=== PATIENT | male | born 1960 | race Caucasian/White ===

== ENCOUNTER 2016-08-11 02:57 | Observation (INO) | payer OTHER ==
[~2016-08-11] VITALS: Ht 180.3 cm; Wt 73.9 kg
--- NOTE | ~2016-08-11 | HEMODYNAMI ---
PATIENT:ALLAN SURESH MEDICAL RECORD: [id number] : 64 [facility] ADMISSION DATE: 08/11/16 Generatedon:08/11/201616:27 Patient name: ALLAN SURESH Patient #: [id number] SSN: : Date of study: 08/11/2016 Page: Of Hemodynamic Procedure Report Patient Data Patient Demographics Procedure consent was obtained First Name: ALLAN Gender: Male Last Name: KERWIN : 1960 [facility] Initial: DANYA Age: 56 year(s) Patient #: [id number] Race: Additional ID: [id number] Contact details [address]: [address] [place] [address] State: [place] City: [place] Zip code: [address] Past Medical History History of disease Date Diagnosis Comments CAD Allergies Allergen Reaction Date Comments Reported Penicillins 05/06/2014 Admission Admission Data Admission Date: 08/11/2016 Admission Time: 5:09 Room #: D2109 Procedure Procedure Types Cath Procedure Diagnostic Procedure [facility] w/Coronaries PCI Procedure Coronary Stent Initial Miscellaneous Procedures Moderate Sedation up to 15 minutes Procedure Description Procedure Date Procedure Date: 08/11/2016 Procedure Start Time: 16:07 Procedure End Time: 16:25 Procedure Staff Name Function Pedro Johnson MD Performing Physician Montse Darden RN Nurse Jarred Lopez RT Monitor April Mulligan RN Pulverizer Operator David Dent RT Scrub Procedure Data Cath Procedure Fluoroscopy Diagnostic fluoroscopy Total fluoroscopy Time: 3 time: 3 min min Diagnostic fluoroscopy Total fluoroscopy dose: 873 dose: 873 mGy mGy Contrast Material Contrast Material Type Amount (ml) Isovue 300 96 Entry Location Entry Primary Successful Side Size Upsize Upsize Entry Closure Succes sful Closure Location (Fr) 1 (Fr) 2 (Fr) Remarks Device Remarks Femoral Right 5 Fr 6 Fr Exoseal artery Short Estimated blood loss: 10 ml Diagnostic catheters Device Type Used For End Catheter Placement Cordis 5Fr Pigtail Procedure Catheter (MP) Cordis 5Fr JL 4.0 Procedure Catheter (MP) Cordis 5Fr 3DRC Catheter Procedure (MP) Procedure Complications No complications Procedure Medications Medication Administration Route Dosage Oxygen NC 2 l/min Heparin Flush Bag added to field 2 bags (1000units/500ml NS) Lidocaine 2% added to field 20 Plavix P.O. 75 mg Versed I.V. 1 mg Fentanyl I.V. 50 mcg Versed I.V. 1 mg Fentanyl I.V. 50 mcg Heparin Bolus I.V. 4000 units Fentanyl I.V. 50 mcg Versed I.V. 1 mg Fentanyl I.V. 50 mcg Hemodynamics Rest Heart Rate: 76 (bpm) Snapshots Pre Cath Intra NCS Post Cath Vital Signs Time Heart Resp SPO2 etCO2 CK0ewlk NIBP (mmHg) Rhythm Pain Sedatio n Rate (ipm) (%) (mmHg) (mmHg) Status Level (bpm) 15:48:34 81 19 98 0 0 145/100(116) NSR 0 (11) 10(A) , No pain 15:52:53 81 14 94 0 0 124/86(109) NSR 0 (11) 10(A) , No pain 15:57:02 82 16 94 0 0 137/84(115) NSR 0 (11) 10(A) , No pain 16:01:18 83 16 95 0 0 131/80(105) NSR 0 (11) 10(A) , No pain 16:06:17 86 15 95 0 0 Measuring NSR 0 (11) 10(A) , No pain 16:06:20 88 15 95 0 0 144/107(136) NSR 0 (11) 10(A) , No pain 16:11:19 91 16 96 0 0 Measuring NSR 0 (11) 9(A) , No pain 16:12:38 95 15 96 0 0 150/98(110) NSR 0 (11) 9(A) , No pain 16:17:37 96 16 96 0 0 Measuring NSR 0 (11) 9(A) , No pain 16:17:48 97 16 96 0 0 131/113(124) NSR 0 (11) 9(A) , No pain 16:22:47 95 17 95 0 0 Measuring NSR 0 (11) 9(A) , No pain 16:23:57 96 17 95 0 0 124/91(109) NSR 0 (11) 9(A) , No pain Medications Time Medication Route Dose Verified Delivered Reason Notes Effectiveness by by 15:43:14 Plavix P.O. 75 mg Pedro Montse for Alex Darden RN antiplatelet therapy 15:47:54 Oxygen NC 2 Pedro Montse Per physician l/min Alex Darden RN 15:48:05 Heparin Flush added 2 Pedro Pedro used for Bag to bags Alex Johnson MD procedure (1000units/500ml field NS) 15:48:13 Lidocaine 2% added 20ml Pedro Pedro used for to vial Alex Johnson MD procedure field 16:04:30 Versed I.V. 1 mg Pedro Montse for sedation Alex Darden RN 16:04:31 Fentanyl I.V. 50 Pedro Montse for sedation mcg Alex Darden RN 16:06:35 Versed I.V. 1 mg Pedro Montse for sedation Alex Darden RN 16:06:39 Fentanyl I.V. 50 Pedro Montse for sedation mcg Alex Darden RN 16:08:15 Fentanyl I.V. 50 Pedro Montse for sedation mcg Alex Darden RN 16:08:26 Versed I.V. 1 mg Pedro Montse for sedation Alex Darden RN 16:10:46 Fentanyl I.V. 50 Pedro Montse for sedation mcg Alex Darden RN 16:15:04 Heparin Bolus I.V. 4000 Pedro Montse for dose units Alex Darden RN anticoagulation verified with dr johnson Procedure Log Time Note 15:20:43 April Mulligan RN sent for patient. Start room use. 15:41:56 Time tracking: Regular hours 15:42:05 Plan of Care:Hemodynamics will remain stable., Cardiac rhythm will remain stable., Comfort level will be maintained., Respiratory function will remain adequate., Patient/ family verbilizes understanding of procedure., Procedure tolerated without complication., Recovers from procedure without complications.. 15:42:16 Patient received from PCU to CCL 1 Alert and oriented. Tansferred to table in Supine position. 15:42:17 Warm blankets applied, and ivon hugger turned on for patient comfort. 15:42:18 Correct patient and procedure confirmed by team. 15:42:19 Signed procedure consent form obtained from patient. 15:42:19 ECG and BP/O2 sat monitors applied to patient. 15:43:14 Plavix 75 mg P.O. was administered by Montse Darden RN; for antiplatelet therapy; 15:47:33 Vital chart was started 15:47:54 Oxygen 2 l/min NC was administered by Montse Darden RN; Per physician; 15:48:05 Heparin Flush Bag (1000units/500ml NS) 2 bags added to field was administered by Pedro Johnson MD; used for procedure; 15:48:13 Lidocaine 2% 20ml vial added to field was administered by Pedro Johnson MD; used for procedure; 15:49:05 Baseline sample Acquired. 15:49:14 Rhythm: sinus rhythm 15:49:15 Full Disclosure recording started 15:49:21 H&P Date Dictated: 08/11/2016 Within 30 days and on chart.. 15:49:22 Pre-procedure instructions explained to patient. 15:49:22 Pre-op teaching completed and patient verbalized understanding. 15:49:23 Family in waiting room. 15:49:25 Patient NPO since Midnight. 15:49:28 Is the patient allergic to Iodine/contrast media? No. 15:49:33 Is patient on blood thinner?Yes 15:49:37 ACC The patient was administered the following blood thiners within the last 24 hours: ACCPlavix 15:49:40 Patient diabetic? Yes. 15:50:59 If diabetic: On Metformin? No 15:51:18 Previous problem with sedation/anesthesia? No ? 15:51:20 Snore? Yes 15:51:21 Sleep apnea? No 15:51:22 Deviated septum? No 15:51:23 Opens mouth fully? Yes 15:51:24 Sticks out tongue? Yes 15:51:26 Airway obstruction? No ? 15:51:28 Dentures? No ? 15:51:43 Pre procedure: right dorsailis pedis pulse 1+ Palpable, but thready & weak; easily obliterated 15:51:46 Patient pain scale 0/10 ?. 15:51:53 IV patent on arrival in left forearm with 0.9% NaCl at [facility]. 15:51:56 Lab results completed and on chart. 15:52:02 Right groin area was prepped with chlora-prep and draped in sterile fashion 15:52:04 Alarms reviewed by R. N. 15:52:05 Sharps counted by scrub and verified by R.N. 15:52:59 Use device set Femoral Dx 15:53:00 Tegaderm 4 x 4 opened to sterile field. 15:53:01 Acist Hand Control opened to sterile field. 15:53:02 Acist Manifold opened to sterile field. 15:53:04 Acist Syringe opened to sterile field. 15:53:04 Bag Decanter opened to sterile field. 15:53:05 Medline Cath Pack opened to sterile field. 15:53:05 Terumo 5Fr Cooper Sheath opened to sterile field. 15:53:06 St Shabbir 260cm J .035 wire opened to sterile field. 15:53:07 Diagnostic Infinity 5Fr Multipack catheter opened to sterile field. 15:55:36 Physician paged 16:03:30 Zero performed for pressure channel P1 16:04:22 --------ALL STOP TIME OUT------ 16:04:24 Final Timeout: patient, procedure, and site verified with staff and physician. All members of the team are in agreement. 16:04:27 Right groin site verified by team. 16:04:29 Physical assessment completed. ASA score P 2 - A patient with mild systemic disease as per Pedro Johnson MD. 16:04:30 Versed 1 mg I.V. was administered by Montse Darden RN; for sedation; 16:04:31 Fentanyl 50 mcg I.V. was administered by Montse Darden RN; for sedation; 16:04:32 Sedation plan: IV Moderate Sedation Versed, Fentanyl 16:06:35 Versed 1 mg I.V. was administered by Montse Darden RN; for sedation; 16:06:39 Fentanyl 50 mcg I.V. was administered by Montse Darden RN; for sedation; 16:07:32 Procedure started. 16:07:36 Local anesthetic to right femoral artery with Lidocaine 2% by Pedro Johnson MD.INITIAL ACCESS ONLY 16:08:15 Fentanyl 50 mcg I.V. was administered by Montse Darden RN; for sedation; 16:08:26 Versed 1 mg I.V. was administered by Montse Darden RN; for sedation; 16:10:33 A 5 Fr sheath was inserted into the Right Femoral artery 16:10:46 Fentanyl 50 mcg I.V. was administered by Montse Darden RN; for sedation; 16:10:50 A Cordis 5Fr Pigtail Catheter (MP) was advanced over the wire and used for Procedure. 16:10:56 LV angiography performed. 16:10:57 LV gram done using BERNABE 16:11:01 EF : 55 % 16:11:06 Injector settings: Ml/sec: 10, Volume: 20, 16:11:12 Catheter removed. 16:11:18 A Cordis 5Fr JL 4.0 Catheter (MP) was advanced over the wire and used for Procedure. 16:11:37 LCA angiography performed. 16:12:22 Catheter removed. 16:12:28 A Cordis 5Fr 3DRC Catheter (MP) was advanced over the wire and used for Procedure. 16:13:36 RCA angiography performed. 16:14:07 Terumo 6Fr Cooper Sheath opened to sterile field. 16:14:08 Em Whisper J 300cm 0.014 guide wire opened to sterile field. 16:14:08 WibiDataixCompak Inflation Kit opened to sterile field. 16:14:08 apomiotronic Launcher 6Fr 3DRC guide catheter opened to sterile field. 16:14:13 Catheter removed. 16:14:32 Sheath upsized to a 6 Fr Short. 16:14:47 6 Fr 3DRC guide catheter was inserted over the wire 16:15:04 Heparin Bolus 4000 units I.V. was administered by Montse Darden RN; for anticoagulation; dose verified with dr johnson 16:15:05 ACC PCI Site: mRCA has 80% stenosis. 16:15:10 Whisper wire advanced. 16:16:29 Wire advanced across lesion. 16:17:26 Inflation Number: 1 A Medtronic Resolute 3.5 X 12 stent was prepped and advanced across the Prox RCA. The stent was deployed at 21 LOYD for 0:10 (min:sec). 16:17:34 Inflation number: 2 The stent balloon was then re-inflated across the Prox RCA to 21 LOYD for 0:10 (min:sec). 16:18:38 Multiple inflations made at 21 Atms. 16:19:09 ACC Post-intervention NISHANT Flow is 3. 16:19:11 Stent catheter was removed intact over wire. 16:19:12 Wire removed. 16:19:12 Guide catheter removed. 16:19:21 Cordis 6Fr Exoseal opened to sterile field. 16:19:35 Sheath removed intact; hemostasis achieved with Exoseal to the Right Femoral artery. 16:19:38 Procedure ended.(Physican Out) 16:19:49 Fluoroscopy time 03.00 minutes. 16:19:53 Flurop Dose total: 873 16:19:53 Fluoroscopy dose: 873 mGy 16:19:58 Contrast amount:Isovue 300 96ml. 16:20:01 Sharps counted by scrub and verified by R.N. 16:20:03 Insertion/operative site no bleeding no hematoma. 16:20:06 Post-op/insertion site Right Femoral artery dressed using a 4 x 4 and Tegaderm. 16:20:08 Post Procedure Pulses reassessed and unchanged 16:20:12 Post-procedure physical assessment completed. ASA score P 2 - A patient with mild systemic disease as per Pedro Johnson MD. 16:20:14 Post procedure rhythm: unchanged. 16:20:16 Estimated blood loss: 10 ml 16:20:18 Post procedure instruction explained to patient.Patient verbalizes understanding. 16:20:19 Patient needs reinforcement of post procedure teaching. 16:20:31 Procedure type changed to Cath procedure, Diagnostic procedure, LHC, LHC w/Coronaries, PCI procedure, Coronary Stent Initial, Miscellaneous Procedures, Moderate Sedation up to 15 minutes 16::33 Procedure and supply charges have been captured, reviewed, submitted and are correct. 16:20:36 Procedure Complication : No complications 16:25:31 Vital chart was stopped 16:25:33 See physician's report for complete and final results. 16:25:36 Report given to PCU. 16:25:40 Patient transfered to PCU with Bed. 16::43 Procedure ended. 16::43 Full Disclosure recording stopped 16:25:53 End room use (Document Last) Intervention Summary Intervention Notes Time ActionType Lesion and Equipment Action# Pressure Duration Attributes Used 16:17:26 Place stent Prox RCA Medtronic 1 21 00:10 Resolute 3.5 X 12 stent 16:17:34 Reinflate Prox RCA Medtronic 2 21 00:10 stent Resolute balloon 3.5 X 12 stent Device Usage Item Name Manufacture Quantity Catalog Hospital Part Current Minimal Lot# / Number Charge Number Stock Stock Serial# Code Liz Reddy 3M 1 [id number] 203266 270826 5 x 4 Acist Hand Acist 1 00397 522722 748016 337967 5 Control Medical Systems Connect HQ Acist Acist 1 16571 051899 860057 738405 5 Manifold Medical Systems Connect HQ Acist Acist 1 78915 739236 372258 402814 20 Syringe Cloakware Systems Connect HQ Bag Microtek 1 2002S 825987 69311 851945 5 [employer] Medline Cardinal 1 [id number] 286478 96122 303039 5 Cath Pack Health Terumo 5Fr Terumo 1 [id number] 264672 329670 324[address] St Shabbir 1 820001 796175 112376 461498 30 260cm J .035 wire Diagnostic Cardinal 1 [id number] 337740 57483 724201 30 Infinity Health 5Fr Multipack catheter Cordis 5Fr Cardinal 1 318898 5 Pigtail Health Catheter (MP) Cordis 5Fr Cardinal 1 200548 5 JL 4.0 Health Catheter (MP) Cordis 5Fr Cardinal 1 456646 5 3DRC Health Catheter (MP) Terumo 6Fr Terumo 1 [id number] 104386 309046 493740 40 Cooper Sheath Em Em 1 [id number] 396647 249566 077388 5 Whisper J Vascular 300cm 0.014 guide wire Merit Merit 1 [id number] 155958 431642 916350 15 [facility] Medical Inflation Kit Medtronic Medtronic 1 [id number] 484309 314630 594076 1 Launcher 6Fr 3DRC guide catheter Medtronic Medtronic 1 [id number] 259603 330342 5 [id number] Resolute 3.5 X 12 stent Cordis 6Fr Cardinal 1 EX600 127297 712685 783474 10 [facility] NeoStem Signature Audit [place] Stage Time Signature Unsigned Intra-Procedure 08/11/2016 Jarred Lopez 4:27:32 PM RT(R) Signatures Monitor : Jarred Lopez RT Signature : Date : Time : [address] [place] [address]
[~2016-08-11 02:57] MED LIST: ACETAMINOPHEN325 MG PO; ALLEGRA-D1 TAB.SR . PO; APIDRA100 U/M1 SQ; BAYER CHEWABLE81 MG PO; BUTALB-APAP-CA1 EACH PO; CARAFATE1 G PO; ELAVIL25 MG PO; FARXIGA10 MG PO; FLAGYL500 MG PO; IMDUR30 MG PO; KOMBIGLYZE XR1 EACH PO; LANTUS INSULIN10 ML SC; LANTUS SOL100 UNIT/1 SQ; LEVAQUIN500 MG PO; LEVSIN/ANASP0.125 MG SL; LIPITOR40 MG PO; LISINOPRIL10 MG PO; MULTI-DAY VITAM1 TAB PO; NITROSTAT0.4 MG SL; NOVOLOG100 U/M1 SC; PHENERGAN25 M1 PO; PLAVIX75 MG PO; PRAVACHOL40 MG PO; PRILOSEC20 MG PO; PRINIVIL20 MG PO; PROCTOFOAM-HC F10 G1 RC; PROTONIX40 MG PO; RANEXA500 MG PO; ROBAXIN-750750 MG PO; SYNTHROID50 MCG PO; VITAMIN C250 MG PO; ZESTRIL10 MG PO
[2016-08-11 03:27] LABS: BASOPHILS 0.3 % (0-2); EOSINOPHILS 4.1 % (0-7); HEMATOCRIT 46.6 % (42.0-54.0); HEMOGLOBIN 16.3 g/dL (13.5-17.5); IMMATURE GRANULOCYTES 0.3 % (0-5); MCH 30.6 pg (26.0-34.0); MCV 87.4 fL (80.0-100.0); MEAN PLATELET VOLUME 9.8 fL (7.4-10.4); MONOCYTES 9.5 % (2-11); NEUTROPHILS 46.8 % (40-80); PLATELET COUNT 192 10x3/uL (130-400); RBC 5.33 10x6/uL (4.20-6.10); RDW 13.2 % (11.5-14.5); WBC 6.3 10x3/uL (4.8-10.8)
[2016-08-11 03:50] LABS: ALBUMIN 3.8 g/dL (3.4-5.0); ALKALINE PHOSPHATASE 68 U/L (46-116); ALT (SGPT) 45 U/L (10-68); CALC OSMOLALITY 280 mosm/kg (275-300); CALCIUM 9.2 mg/dL (8.5-10.1); CARBON DIOXIDE 23.8 mmol/L (21.0-32.0); CHLORIDE - SERUM 100 mmol/L (98-107); CREATININE - SERUM 1.1 mg/dL (0.6-1.3); POTASSIUM - SERUM 3.6 mmol/L (3.5-5.1); PROTEIN - SERUM 7.5 g/dL (6.4-8.2); SODIUM 135 mmol/L (136-145); UREA NITROGEN 18 mg/dL (7-18); eGFR NON AFRICAN AMERICAN 74 mL/min (90-120)
[2016-08-11 03:51] LABS: GLUCOSE 268 mg/dL (74-106)
[2016-08-11 04:01] LABS: CREATINE KINASE 119 UL (21-232); TROPONIN-I < 0.017 ng/mL (0.000-0.060)
--- NOTE | 2016-08-11 05:15 | NUR ---
PT CAME TO M2 FLOOR IN WHEELCHAIR WITH ER NURSE AND . PT HUMBERTO AND EMMY.
[2016-08-11 06:15] LABS: CREATINE KINASE 109 UL (21-232); TROPONIN-I < 0.017 ng/mL (0.000-0.060)
[2016-08-11 08:00] VITALS: BP 123/75
--- NOTE | 2016-08-11 08:27 | NUR ---
ALERT AND ORIENTED X4. RESTING IN BED. AT BEDSIDE. COMPLAINS OF CHEST PAIN AND SOB. O2 @ 2L NC. CONSENTS FOR CRUSHER SCREEN REPAIRER SIGNED ON CHART. COURTNEY CARDIAC HOME DECORATOR IN ROOM. CONTINUE PLAN OF CARE AND SAFETY PRECAUTIONS. BED LOCKED AND LOW. CALL LIGHT IN REACH. TWO SIDERAILS UP.
[2016-08-11 08:43] LABS: BASOPHILS 0.4 % (0-2); EOSINOPHILS 4.8 % (0-7); HEMATOCRIT 45.3 % (42.0-54.0); HEMOGLOBIN 15.6 g/dL (13.5-17.5); IMMATURE GRANULOCYTES 0.4 % (0-5); LYMPHOCYTES 35.4 % (15-50); MCH 30.4 pg (26.0-34.0); MCHC 34.4 g/dL (31.0-37.0); MCV 88.3 fL (80.0-100.0); MEAN PLATELET VOLUME 10.3 fL (7.4-10.4); PLATELET COUNT 188 10x3/uL (130-400); RBC 5.13 10x6/uL (4.20-6.10); RDW 13.2 % (11.5-14.5); WBC 5.4 10x3/uL (4.8-10.8)
[2016-08-11 08:45] LABS: CARBON DIOXIDE 18.8 mmol/L (21.0-32.0); CREATININE - SERUM 1.2 mg/dL (0.6-1.3); POTASSIUM - SERUM 3.8 mmol/L (3.5-5.1)
[2016-08-11 11:13] VITALS: BP 123/75; Ht 180.3 cm; Wt 73.9 kg
[2016-08-11 12:30] LABS: CREATINE KINASE 84 UL (21-232); TROPONIN-I < 0.017 ng/mL (0.000-0.060)
[2016-08-11 14:02] VITALS: BP 114/71
[2016-08-11 16:00] VITALS: BP 147/94
--- NOTE | 2016-08-11 16:40 | NUR ---
ARRIVE BACK TO ROOM FROM WINDOW DECORATOR VIA BED. ALERT AND ORIENTED X4. AT BEDSIDE. RT GROIN DRESSING CLEAN DRY INTACT. NO HEMATOMA. NO BLEEDING. SINUS RHTHYM 87bpm ON TELEMETRY. PULSE +2 BILATERALLY. BP-147/94, T-97.9, R-18, O2-96% 2L NC. INSTRUCT TO REMAIN FLAT FOR NEXT TWO HOURS. DISCHARGE ORDERED. OKAY TO STAY THROUGH NIGHT PER . PATIENT STATES, "I WANT TO STAY." CONTINUE PLAN OF CARE AND SAFETY PRECAUTIONS.
--- NOTE | 2016-08-11 19:50 | NUR ---
TEACHING PT LYING FLAT, AND DO NOT MOVE UNTIL 2029.
[2016-08-11 21:40] VITALS: BP 129/76
--- NOTE | 2016-08-12 01:07 | NUR ---
BOND TRADER AT BEDSIDE TO OBTAIN VITALS, CALL LIGHT IN REACH. WILL CONTINUE WITH PLAN OF CARE.
[2016-08-12 01:21] VITALS: BP 123/78
[2016-08-12 04:47] VITALS: BP 116/60
--- NOTE | 2016-08-12 08:09 | NUR ---
PT ASLEEP AT PRESENT. MONITOR SHOWS 77 SR.
[2016-08-12 08:40] VITALS: BP 115/75
--- NOTE | 2016-08-12 08:49 | OP ---
PATIENT NAME: ALLAN SURESH MEDICAL RECORD: [id number] :64 LOCATION:D.M2 D.2109 ADMISSION DATE:08/11/16 SURGEON: TEZ MEJIAS MD DATE OF OPERATION: 08/11/2016 PROCEDURES: 1. PTCA stent RCA. 2. Left heart catheterization. 3. Selective coronary angiography. 4. Left ventriculogram. INDICATION: Unstable angina. PROCEDURE IN DETAIL: After informed consent was obtained and after detailed explanation of risks, benefits as well as alternative therapies, the patient elected to proceed with angiogram and angioplasty. The right femoral area was prepped and draped in normal sterile fashion. The right femoral artery was cannulated via modified Seldinger technique with placement of 6-Ecuadorean sheath. All catheters exchanged through this sheath. FINDINGS: The left ventriculogram was performed in standard 30-degree BERNABE view, reveals good cardiac wall motion throughout all segments. Overall ejection fraction estimated at 55% to 60%. SELECTIVE CORONARY ANGIOGRAPHY: 1. Left main showed no significant angiographic disease. 2. Left anterior descending has mild irregularities, but no flow-limiting stenosis. 3. The left circumflex has nfxy-eg-qcnjzpig irregularities, but no flow-limiting stenosis. 4. The right coronary has multiple previously placed stents. There is 80% in-stent restenosis in the proximal and mid vessel. PTCA STENT OF THE RIGHT CORONARY ARTERY: The stent of proximal vessel was 3.5 x 12 mm Resolute taken to 21 atmospheres. The stent balloon was deployed at the area of in-stent restenosis in the mid vessel up to 21 atmospheres. Result was 0% residual throughout. OVERALL IMPRESSION: Successful percutaneous transluminal coronary angioplasty stent of the right coronary artery going from 80% initial stenosis to 0% residual. TRANSINT:[id number] Voice Confirmation ID: [id number] DOCUMENT ID: [id number] TEZ MEJIAS MD at 0849 CC: [id number] DICTATION DATE: 08/11/16 1623 NON DESTRUCTIVE TESTING SPECIALIST: 08/12/16 0148 ADM IN [place] [id number] [place] [address]
--- NOTE | 2016-08-12 09:54 | NUR ---
DISCHARGE INSTRUCTIONS GIVEN TO PT AND FAMILY. MONIOTR OFF AND IV DC WITH TIP INTACT. CALLED FOR WC.
--- NOTE | 2016-08-12 09:57 | NUR ---
D/C HOME. TO CAR VIA
--- NOTE | 2016-08-16 10:11 | DS ---
PATIENT:ALLAN COMBS :64 MEDICAL RECORD: [id number] DISCHARGE SUMMARY ADMISSION DATE: 08/11/16 DISCHARGE DATE: 08/12/16 DISCHARGE DIAGNOSES: 1. Unstable angina. 2. Coronary artery disease. 3. Percutaneous transluminal coronary angioplasty stent right coronary artery this admission. 4. Hypertension. 5. Hyperlipidemia. HOSPITAL COURSE: Mr. Combs presents with unstable anginal symptomatology, found to have single vessel disease of the RCA, underwent successful PTCA stent of the RCA, had an uneventful postop course. He was discharged home with no change in his medications as he is already on aspirin and Plavix. He will follow up with [facility] in 1 month. TRANSINT:[id number] Voice Confirmation ID: [id number] DOCUMENT ID: [id number] TEZ MEJIAS MD at 1011 CC: [id number] DICTATION DATE: 08/11/16 162 CLIENT TECHNICAL SUPPORT ASSOCIATE: 08/12/16 1038 DIS IN 08/12/16 [place] [id number] [place] [address]
== END 2016-08-12 09:58 | disposition home or self-care (01) ==
LOC: D.ER 02:57 → D.M2 05:09 → OBSVTIME 05:09 → D.M2 08-12 09:58
PROVIDERS: Family Medicine; ADMIT Internal Medicine Interventional Cardiology
DX: I25.110 Atherosclerotic heart disease of native coronary artery with unstable angina pectoris (principal); T82.855A Stenosis of coronary artery stent, initial encounter; Y83.9 Surgical procedure, unspecified as the cause of abnormal reaction of the patient, or of later complication, without mention of misadventure at the time of the procedure; E78.5 Hyperlipidemia, unspecified

== ENCOUNTER 2016-10-18 11:23 | Observation (INO) | payer OTHER ==
[~2016-10-18] VITALS: Ht 180.3 cm; Wt 103.5 kg
[2016-10-18 11:56] LABS: BASOPHILS 0.2 % (0-2); EOSINOPHILS 3.2 % (0-7); HEMATOCRIT 45.5 % (42.0-54.0); HEMOGLOBIN 15.9 g/dL (13.5-17.5); IMMATURE GRANULOCYTES 0.5 % (0-5); MCH 30.6 pg (26.0-34.0); MCHC 34.9 g/dL (31.0-37.0); MCV 87.7 fL (80.0-100.0); MEAN PLATELET VOLUME 10.4 fL (7.4-10.4); MONOCYTES 11.9 % (2-11); NEUTROPHILS 48.2 % (40-80); PLATELET COUNT 183 10x3/uL (130-400); RBC 5.19 10x6/uL (4.20-6.10); RDW 13.3 % (11.5-14.5); WBC 5.6 10x3/uL (4.8-10.8)
[2016-10-18 12:12] LABS: ALBUMIN 3.8 g/dL (3.4-5.0); ALKALINE PHOSPHATASE 79 U/L (46-116); ALT (SGPT) 50 U/L (10-68); BILIRUBIN - TOTAL 0.98 mg/dL (0.2-1.3); CALC OSMOLALITY 287 mosm/kg (275-300); CARBON DIOXIDE 27.3 mmol/L (21.0-32.0); CHLORIDE - SERUM 101 mmol/L (98-107); CREATININE - SERUM 1.2 mg/dL (0.6-1.3); POTASSIUM - SERUM 3.9 mmol/L (3.5-5.1); PROTEIN - SERUM 7.8 g/dL (6.4-8.2); SODIUM 138 mmol/L (136-145); UREA NITROGEN 14 mg/dL (7-18); eGFR NON AFRICAN AMERICAN 67 mL/min (90-120)
[2016-10-18 12:15] LABS: GLUCOSE 293 mg/dL (74-106)
[2016-10-18 12:16] LABS: CHOL - HDL RATIO 5.1 ratio (2.3-4.9); CHOLESTEROL, TOTAL 210 mg/dL (0-200); CKMB 1.1 U/L (0.0-3.6); CREATINE KINASE 128 UL (21-232); HDL CHOLESTEROL 41 mg/dL (32-96); LDL CHOLESTEROL 103 mg/dL (0-100); LDL-HDL RATIO 2.5 ratio (1.5-3.5); TRIGLYCERIDE 331 mg/dL (30-200)
[2016-10-18 12:31] LABS: TROPONIN-I < 0.017 ng/mL (0.000-0.060)
[2016-10-18 15:45] LABS: CKMB 0.8 U/L (0.0-3.6); CREATINE KINASE 93 UL (21-232)
[2016-10-18 15:46] LABS: TROPONIN-I < 0.017 ng/mL (0.000-0.060)
[2016-10-18 19:00] VITALS: BP 113/56
--- NOTE | 2016-10-18 19:53 | NUR ---
UP AMBULATING IN HALLS. WANTING ANXIETY MEDS BUT NOT TIME . EXPLAINED TO PT.
--- NOTE | 2016-10-18 19:56 | NUR ---
SLEEPING NO DISTRESS NOTED. MONITOR SB @ 51.
[2016-10-18 21:30] LABS: CKMB 0.9 U/L (0.0-3.6); CREATINE KINASE 80 UL (21-232)
[2016-10-18 21:35] LABS: TROPONIN-I < 0.017 ng/mL (0.000-0.060)
[2016-10-18 21:53] VITALS: Ht 180.3 cm; Wt 103.5 kg
[2016-10-19 04:00] VITALS: BP 117/67
[2016-10-19 05:54] LABS: BASOPHILS 0.2 % (0-2); HEMATOCRIT 43.2 % (42.0-54.0); HEMOGLOBIN 14.9 g/dL (13.5-17.5); IMMATURE GRANULOCYTES 0.4 % (0-5); LYMPHOCYTES 33.3 % (15-50); MCH 30.5 pg (26.0-34.0); MCHC 34.5 g/dL (31.0-37.0); MCV 88.5 fL (80.0-100.0); MEAN PLATELET VOLUME 10.3 fL (7.4-10.4); MONOCYTES 7.7 % (2-11); NEUTROPHILS 55.4 % (40-80); PLATELET COUNT 177 10x3/uL (130-400); RBC 4.88 10x6/uL (4.20-6.10); RDW 13.6 % (11.5-14.5); WBC 5.4 10x3/uL (4.8-10.8)
[2016-10-19 06:03] LABS: HEMOGLOBIN A1C 8.7 % (4.8-6.0)
[2016-10-19 06:22] LABS: ALBUMIN 3.4 g/dL (3.4-5.0); ALKALINE PHOSPHATASE 52 U/L (46-116); ALT (SGPT) 51 U/L (10-68); BILIRUBIN - TOTAL 1.37 mg/dL (0.2-1.3); CALC OSMOLALITY 282 mosm/kg (275-300); CALCIUM 8.3 mg/dL (8.5-10.1); CARBON DIOXIDE 27.4 mmol/L (21.0-32.0); CHLORIDE - SERUM 103 mmol/L (98-107); POTASSIUM - SERUM 3.8 mmol/L (3.5-5.1); PROTEIN - SERUM 6.8 g/dL (6.4-8.2); SODIUM 139 mmol/L (136-145); T4 THYROXIN - FREE 1.16 ng/dL (0.76-1.46); UREA NITROGEN 15 mg/dL (7-18); eGFR NON AFRICAN AMERICAN 83 mL/min (90-120)
[2016-10-19 06:23] LABS: GLUCOSE 163 mg/dL (74-106)
[2016-10-19 06:34] LABS: CKMB 0.4 U/L (0.0-3.6); CREATINE KINASE 64 UL (21-232)
[2016-10-19 06:35] LABS: TROPONIN-I < 0.017 ng/mL (0.000-0.060)
--- NOTE | 2016-10-19 07:00 | NUR ---
REPORT RECEIVED FROM OFF COMING NURSE. PT ALERT AND ORIENTED X4. C/O CHEST PAIN. PRN NITRO GIVEN WITH NO RESULTS OF RESOLVING CHEST PAIN. ECG PREFORMED SHOWING A NORMAL SINUS RYTHEM. AWARE OF CHEST PAIN. PRN NORCO GIVEN. PT HAS A L WRIST IV SL. DRESSING C/D/I. PT WAS WONDERING IF HE WAS GOING TO HAVE A STRESS TEST TODAY. MD NOTES VAGUE WHETHER HE IS TO HAVE ONE OR NOT. BREATHING NORMAL AND UNLABORED. 0 S/SX OF DISTRESS/DISCOMFORT NOTED. CALL LIGHT IN REACH. WILL CONT POC
[2016-10-19 08:18] VITALS: BP 107/61
--- NOTE | 2016-10-19 09:30 | NUR ---
C/O NAUSEA AFTER BREAKFAST. PRN ZOFRAN GIVEN WITH EFFECTIVNESS. WILL CONT POC
--- NOTE | 2016-10-19 12:00 | NUR ---
IN BED WATCHING TV. NO C/O PAIN AT THIS TIME. BREATHING NORMAL AND UNLABORED. CALL LIGHT IN REACH. WILL CONT POC.
[2016-10-19 12:23] VITALS: BP 104/62
[2016-10-19 17:06] VITALS: BP 118/75
--- NOTE | 2016-10-19 19:20 | NUR ---
REPORT GIVEN TO ON COMING NURSE
--- NOTE | 2016-10-19 19:48 | NUR ---
PT IN BED RESTING EVEN AND UNLABORED RESPIRATIONS NOTED WILL CONTINUE TO MONITOR
[2016-10-19 20:00] VITALS: BP 97/49
[2016-10-20 04:00] VITALS: BP 88/47
[2016-10-20 04:22] LABS: BASOPHILS 0.4 % (0-2); HEMATOCRIT 43.2 % (42.0-54.0); HEMOGLOBIN 14.7 g/dL (13.5-17.5); IMMATURE GRANULOCYTES 0.4 % (0-5); LYMPHOCYTES 40.6 % (15-50); MCH 30.3 pg (26.0-34.0); MCV 89.1 fL (80.0-100.0); MEAN PLATELET VOLUME 9.8 fL (7.4-10.4); MONOCYTES 6.7 % (2-11); NEUTROPHILS 48.9 % (40-80); PLATELET COUNT 172 10x3/uL (130-400); RBC 4.85 10x6/uL (4.20-6.10); RDW 13.2 % (11.5-14.5); WBC 5.1 10x3/uL (4.8-10.8)
--- NOTE | 2016-10-20 04:24 | NUR ---
RESTING WITH EYES CLOSED, RESPERATIONS EVEN, NO S/S DISTRESS NOTED.
[2016-10-20 05:21] LABS: ALBUMIN 3.3 g/dL (3.4-5.0); ANION GAP 11.9 mmol/L (8-16); BILIRUBIN - TOTAL 1.42 mg/dL (0.2-1.3); CALCIUM 8.1 mg/dL (8.5-10.1); CARBON DIOXIDE 27.9 mmol/L (21.0-32.0); POTASSIUM - SERUM 3.8 mmol/L (3.5-5.1); PROTEIN - SERUM 6.8 g/dL (6.4-8.2)
[2016-10-20 05:24] LABS: CREATININE - SERUM 1.3 mg/dL (0.6-1.3)
--- NOTE | 2016-10-20 07:00 | NUR ---
REPORT RECEIVED. PT DENIES CHEST PAIN. JE NEEDS AT THIS TIME. NPO FOR STRESS TEST THIS AM. BREATHING NORMAL AND UNLABORED. CALL LIGHT IN REACH. WILL CONT POC.
--- NOTE | 2016-10-20 11:10 | NUR ---
LEFT FOR STRESS TEST VIA WC WITH TECH.
--- NOTE | 2016-10-20 11:45 | NUR ---
BACK IN ROOM. IN BED WATCHING TV. AT BED SIDE.
--- NOTE | 2016-10-20 12:50 | NUR ---
C/O A RACING HEART. EKG SHOWS SINUS TACH OF 102. MD NOTIFIED. NEW ORDRES TO GIVE LOPRESSOR 25 X1 DOSE.
--- NOTE | 2016-10-20 13:00 | NUR ---
SINUS RYTHM. NO C/O PAIN/ RACING HEART AT THIS TIME.
--- NOTE | 2016-10-20 13:39 | NUR ---
LOPRESSOR GIVEN FOR TACHYCARDIA. BP 134/82 WITH 106 PULSE. WILL REASSESS
[2016-10-20 16:00] VITALS: BP 127/67
--- NOTE | 2016-10-20 17:37 | EC ---
PATIENT:ALLAN SURESH DATE OF SERVICE: 10/18/16 SEX: M MEDICAL RECORD: [id number] DATE OF : 64 LOCATION:D.M2 D.212 AGE OF PATIENT: 56 ADMISSION DATE: 10/18/16 REFERRING PHYSICIAN: INTERPRETING PHYSICIAN: GENE VIDAL MD ECHOCARDIOGRAM REPORT ECHO CHARGES 4 ECHO COMPLETE CLINICAL DIAGNOSIS: CHEST PAIN HX OF CAD/STENTS/HTN/DM ECHOCARDIOGRAPHIC MEASUREMENTS (adult normal given) AC root (d.<3.7cm) 3.7 cm LV Septum d (<1.2 cm> 1.6 cm Valve Excursion 1.7 cm LV Septum (systole) 1.7 cm Left Atria (s.<4.0cm> 4.0 cm LVPW d(<1.2cm) 1.4 cm RV (d.<2.3cm) 4.2 cm LVPW (sytole) 1.7 cm LV diastole(<5.6CM) 4.8 cm MV E-F(>70mm/sec) cm LV systole 3.0 cm LVOT Diameter 2.4 cm MV exc.(>10mm) 1.3 cm Est.ejection fraction (50-75%) % Pericardial Effusion N DOPPLER: LVIT cm/sec A 85.0 cm/sec E 74.0 cm/sec LA cm/sec RVSP mmHg LVOT 86 cm/sec AOP1/2T m/s Asc. Ao 150 cm/sec RVOT 67 cm/sec RA cm/sec PA 97 cm/sec AV Gradient Peak 9.00 mmHg AV Mean 5.32 mmHg AV Area 2.7 cm MV Gradient Peak 4.02 mmHg MV Mean 1.38 mmHg MV Area cm COMMENTS: Rouge Miller: Miguelangel RIZZO Logger All Round: Maureen Vidal TAPE# PACS DATE OF SERVICE: 10/19/2016 PROCEDURE: Transthoracic echocardiogram. FINDINGS: The overall quality is difficult on this patient because of anatomic reasons. STUDY QUALITY: 1. Imaging is more qualitative rather than quantitative. 2. The left ventricle appears to have evidence of left ventricular hypertrophy. ECHOCARDIOGRAM REPORT [id number] ALLAN SURESH There is no obvious regional wall motion abnormalities demonstrated. 3. The aortic valve by Doppler examination appears to be structurally normal. 4. The pulmonic valve not well visualized, but again appears to be normal in function. 5. The right ventricle appears to be mildly dilated with possible right ventricular hypertrophy. 6. The mitral valve is grossly normal. 7. The tricuspid valve is grossly normal. 8. The pericardium appears to be grossly normal. CONCLUSIONS: The patient has concentric left ventricular hypertrophy. Grossly, there are no abnormalities or regional wall motion abnormalities. TRANSINT:[id number] Voice Confirmation ID: [id number] DOCUMENT ID: [id number] GENE VIDAL MD at 1737 CC: [id number] DICTATION DATE: 10/20/16 0732 DRY YARD WORKER: 10/20/16 1108 ADM IN [facility] [address] [place] [address]
[2016-10-20 19:00] VITALS: BP 119/69
--- NOTE | 2016-10-20 19:35 | NUR ---
REPORT GIVEN TO ON COMING RN. PT DENIES PAIN AT THIS TIME. IN BED RESTING WITH EYES CLOSED WITH 0 S/SX OF DISTRESS/DISCOMFORT NOTED. CALL LIGHT INR EACH. WILL CONT POC
--- NOTE | 2016-10-20 20:00 | NUR ---
INTRODUCED MYSELF TO PT PRIMARY RN FOR [facility]. PT A&O RESTING QUIETLY IN BED. PT HAS A PIV TO HIS L.FA THAT IS SL WITH DRSG CDI AND SWAB CAPS IN USE. PT DENIES ANY CURRENT NEEDS AND STATES HE WOULD LIKE TO REST FOR A LITTLE BIT. CL IN REACH, BED IN LOWEST, SIDE RAILS X2. TELEMETRY IN PLACE RUNNING NORMAL SINUS @61BPM. WILL CPOC.
--- NOTE | 2016-10-20 22:50 | NUR ---
PROVIDED PT WITH PRN PAIN MED FOR L.CHEST PAIN THAT RADIATES TO HIS L.ARM. PT STATES ITS THE SAME PAIN HE HAS BEEN HAVING AND HIS PRN DILAUDID HELPS RELIEVE THE EDGE OF IT BUT THAT HE STAYS IN PAIN CONSTANTLY. FSBS 186 PT REC'D 2 UNITS PER SS INSULIN ALONG WITH BRANDON GARCIA FOR A BEDTIME SNACK. PT DENIES ANY FURTHER NEEDS AT THIS TIME AND STATES HE IS GOING TO TRY AND SLEEP FOR THE NIGHT. CL IN REACH, BED IN LOWEST, SIDE RAILS X2. WILL CPOC.
[2016-10-21] VITALS: BP 113/63
--- NOTE | 2016-10-21 03:18 | NUR ---
PT RESTING QUIETLY IN BED WITH EYES CLOSED. RR NONLABORED ON RA. TELEMETRY RUNNING SR PER MollyWatrER TECH. NO S/S OF DISTRESS OR ANY CURRENT NEEDS AT THIS TIME. CL IN REACH, BED IN LOWEST, SIDE RAILS X2. WILL CTM.
[2016-10-21 04:00] VITALS: BP 117/69
[2016-10-21] MEDS ORDERED: RANEXA500 MG PO (07:04)
[2016-10-21] MEDS ORDERED: LIPITOR20 MG PO (07:04)
[2016-10-21] MEDS ORDERED: SYNTHROID88 MCG PO (07:05)
[2016-10-21] MEDS ORDERED: JANUVIA50 MG PO (07:05)
[2016-10-21] MEDS ORDERED: METFORMIN HCL500 M1 PO (07:05)
[2016-10-21] MEDS ORDERED: HYDROCODONE-APA1 TAB PO (07:05)
[2016-10-21] MEDS ORDERED: DEXILANT60 MG PO (07:08)
[2016-10-21 08:00] VITALS: BP 106/72
--- NOTE | 2016-10-21 08:05 | NUR ---
ASSESSMENT DONE. DENIES NEEDS.
--- NOTE | 2016-10-21 10:08 | NUR ---
RESTS WITH EYES CLOSED. CALL LIGHT IN REACH. WILL CONT. PLAN OF CARE.
--- NOTE | 2016-10-21 11:00 | NUR ---
DC AND RX GIVEN TO PT
--- NOTE | 2016-10-21 11:23 | NUR ---
DC HOME PER PERSONAL CAR
--- NOTE | 2016-10-22 13:34 | ST ---
PATIENT:ALLAN SURESH MEDICAL RECORD: [id number] SEX: M LOCATION:D. D.212 ORDER #: ADMISSION DATE: 10/18/16 AGE OF PATIENT: 56 REFERRING PHYSICIAN: INTERPRETING PHYSICIAN: TEZ MEJIAS MD DATE OF SERVICE: 10/20/2016 Nuclear stress test INDICATION: Chest pain of unknown etiology. He was exercised on standard Lexiscan protocol with 31.1 mCi of sestamibi injected at peak stress, 12.8 mCi were used previously for rest images. FINDINGS: Gated SPECT reveals preserved ejection fraction at 58% with good wall motion and thickening and brightening throughout all segments. SPECT imaging sestamibi is used as myocardial perfusion agent. There is homogeneous uptake throughout all segments at rest and stress with no evidence of inducible ischemia or previous infarction. OVERALL IMPRESSION: 1. This is a normal nuclear stress test with no evidence of inducible ischemia or previous infarction. 2. Gated SPECT reveals preserved ejection fraction at 58%. In this patient with ongoing symptomatology, the current scan yields a low likelihood of hemodynamically significant coronary artery disease. We will evaluate noncardiac etiology of chest pain. TRANSINT:[id number] Voice Confirmation ID: [id number] DOCUMENT ID: [id number] TEZ MEJIAS MD at 1334 CC: [id number] DICTATION DATE: 10/21/16 1236 GOLF CLUB WEIGHTER: 10/22/16 0316 DIS IN 10/21/16 [facility] [address] [place] [address]
== END 2016-10-21 11:23 | disposition home or self-care (01) ==
LOC: D.ER 11:23 → D.M2 14:55 → OBSVTIME 14:55 → D.M2 14:55
PROVIDERS: Family Medicine; ADMIT Family Medicine
DX: R07.89 Other chest pain (principal); E78.5 Hyperlipidemia, unspecified; I25.10 Atherosclerotic heart disease of native coronary artery without angina pectoris; Z95.5 Presence of coronary angioplasty implant and graft; E03.9 Hypothyroidism, unspecified; E11.9 Type 2 diabetes mellitus without complications

== ENCOUNTER 2017-01-08 18:05 | Emergency (ER) | payer OTHER ==
[2016-10-18 21:53] VITALS: BMI 32.1
[~2017-01-08 18:05] MED LIST changes: +DEXILANT60 MG PO; +HYDROCODONE-APA1 TAB PO; +JANUVIA50 MG PO; +LIPITOR20 MG PO; +METFORMIN HCL500 M1 PO; +SYNTHROID88 MCG PO
[2017-01-08 18:50] LABS: BASOPHILS 0 % (0-2); EOSINOPHILS 1.6 % (0-7); HEMOGLOBIN 17.9 g/dL (13.5-17.5); IMMATURE GRANULOCYTES 0.4 % (0-5); LYMPHOCYTES 33.2 % (15-50); MCH 30.8 pg (26.0-34.0); MCHC 35.1 g/dL (31.0-37.0); MCV 87.8 fL (80.0-100.0); MEAN PLATELET VOLUME 10.1 fL (7.4-10.4); MONOCYTES 7.7 % (2-11); NEUTROPHILS 57.1 % (40-80); PLATELET COUNT 198 10x3/uL (130-400); RBC 5.81 10x6/uL (4.20-6.10); RDW 13.3 % (11.5-14.5); WBC 6.9 10x3/uL (4.8-10.8)
[2017-01-08 19:03] LABS: ALBUMIN 4.2 g/dL (3.4-5.0); ANION GAP 15.3 mmol/L (8-16); BILIRUBIN - TOTAL 1.42 mg/dL (0.2-1.3); CALCIUM 8.7 mg/dL (8.5-10.1); CARBON DIOXIDE 25.5 mmol/L (21.0-32.0); CREATININE - SERUM 1.4 mg/dL (0.6-1.3); MAGNESIUM - SERUM 1.9 mg/dL (1.8-2.4); POTASSIUM - SERUM 3.8 mmol/L (3.5-5.1); PROTEIN - SERUM 8.3 g/dL (6.4-8.2)
[2017-01-08 19:31] LABS: AMYLASE - SERUM 56 U/L (25-115); LIPASE 116 U/L (73-393); PRO BNP 15 pg/mL (0-125)
[2017-01-08 19:33] LABS: TROPONIN-I < 0.017 ng/mL (0.000-0.060)
== END 2017-01-08 21:32 | disposition home or self-care (01) ==
LOC: D.ER 18:05
PROVIDERS: Emergency Medicine; Family Medicine
DX: K52.9 Noninfective gastroenteritis and colitis, unspecified (principal); I10 Essential (primary) hypertension; E11.9 Type 2 diabetes mellitus without complications; Z79.4 Long term (current) use of insulin

== ENCOUNTER 2017-02-13 16:50 | Emergency (ER) | payer OTHER ==
[2016-10-18 21:53] VITALS: BMI 32.1
[2017-02-13 17:33] LABS: BASOPHILS 0.3 % (0-2); HEMATOCRIT 46.4 % (42.0-54.0); HEMOGLOBIN 16.5 g/dL (13.5-17.5); IMMATURE GRANULOCYTES 0.6 % (0-5); LYMPHOCYTES 32.4 % (15-50); MCHC 35.6 g/dL (31.0-37.0); MCV 87.1 fL (80.0-100.0); MEAN PLATELET VOLUME 9.5 fL (7.4-10.4); MONOCYTES 6.5 % (2-11); NEUTROPHILS 58.2 % (40-80); PLATELET COUNT 245 10x3/uL (130-400); RBC 5.33 10x6/uL (4.20-6.10); RDW 12.9 % (11.5-14.5); WBC 6.9 10x3/uL (4.8-10.8)
[2017-02-13 17:45] LABS: ALBUMIN 3.7 g/dL (3.4-5.0); ALKALINE PHOSPHATASE 84 U/L (46-116); ALT (SGPT) 39 U/L (10-68); CALC OSMOLALITY 279 mosm/kg (275-300); CALCIUM 9.1 mg/dL (8.5-10.1); CARBON DIOXIDE 20.2 mmol/L (21.0-32.0); CHLORIDE - SERUM 99 mmol/L (98-107); CREATININE - SERUM 1.3 mg/dL (0.6-1.3); GLUCOSE 222 mg/dL (74-106); POTASSIUM - SERUM 3.8 mmol/L (3.5-5.1); PROTEIN - SERUM 7.9 g/dL (6.4-8.2); SODIUM 135 mmol/L (136-145); UREA NITROGEN 21 mg/dL (7-18); eGFR NON AFRICAN AMERICAN 61 mL/min (90-120)
[2017-02-13 17:54] LABS: CKMB 0.7 U/L (0.0-3.6); CREATINE KINASE 81 UL (21-232)
== END 2017-02-13 21:10 | disposition home or self-care (01) ==
LOC: D.ER 16:50
PROVIDERS: Emergency Medicine
DX: R07.81 Pleurodynia (principal); R06.00 Dyspnea, unspecified; E11.9 Type 2 diabetes mellitus without complications; Z79.4 Long term (current) use of insulin; Z86.79 Personal history of other diseases of the circulatory system; I10 Essential (primary) hypertension; K21.9 Gastro-esophageal reflux disease without esophagitis; R00.0 Tachycardia, unspecified

== ENCOUNTER → 2017-02-17 08:45 | Outpatient (CLI) | payer OTHER ==
[2016-10-18 21:53] VITALS: BMI 32.1
--- NOTE | 2017-02-18 14:04 | EC ---
PATIENT:ALLAN SURESH DATE OF SERVICE: 02/17/17 SEX: M MEDICAL RECORD: [id number] DATE OF : [birth year] [facility] AGE OF PATIENT: 56 ADMISSION DATE: 02/17/17 REFERRING PHYSICIAN: INTERPRETING PHYSICIAN: GENE VIDAL MD ECHOCARDIOGRAM REPORT ECHO CHARGES 4 ECHO COMPLETE CLINICAL DIAGNOSIS: ANGINA/DYSPNEA/CHEST PAIN HX OF CAD/STENTS X8 ECHOCARDIOGRAPHIC MEASUREMENTS (adult normal given) AC root (d.<3.7cm) 3.6 cm LV Septum d (<1.2 cm> 1.4 cm Valve Excursion 2.0 cm LV Septum (systole) 1.7 cm Left Atria (s.<4.0cm> 3.3 cm LVPW d(<1.2cm) 1.5 cm RV (d.<2.3cm) 3.9 cm LVPW (sytole) 1.6 cm LV diastole(<5.6CM) 5.7 cm MV E-F(>70mm/sec) cm LV systole 4.3 cm LVOT Diameter 2.0 cm MV exc.(>10mm) 1.5 cm Est.ejection fraction (50-75%) % Pericardial Effusion N DOPPLER: LVIT cm/sec A 75.0 cm/sec E 62.0 cm/sec LA cm/sec RVSP 22 mmHg LVOT 107 cm/sec AOP1/2T m/s Asc. Ao 145 cm/sec RVOT 85 cm/sec RA cm/sec PA 122 cm/sec AV Gradient Peak 8.38 mmHg AV Mean 4.10 mmHg AV Area 2.2 cm MV Gradient Peak 4.30 mmHg MV Mean 1.28 mmHg MV Area cm COMMENTS: Casting Assistant: Miguelangel RIZZO Rnp: Maureen Vidal TAPE# PACS DATE OF SERVICE: 02/17/2017 PROCEDURE: Transthoracic echocardiogram. FINDINGS: 1. Left ventricle has evidence of moderate left ventricular hypertrophy. The patient has hyperdynamic LV systolic function with ejection fraction of 65% to 70%. There is no obvious regional wall motion abnormalities. Inflow characteristics are consistent with diastolic dysfunction. 2. The right ventricle is foua-kh-iyjxinvegl dilated with normal function. ECHOCARDIOGRAM REPORT [id number] ALLAN SURESH 3. The right atrium is mildly dilated. 4. The left atrium is normal size, normal function. 5. Aortic valve is normal size, normal function, normal structure. 6. Mitral valve is normal size, normal function, normal structure. 7. Tricuspid valve has trace tricuspid regurgitation with normal right ventricular systolic pressures. 8. The pericardium is normal. 9. Pulmonic valve is normal. CONCLUSIONS: Although the patient has a history of coronary artery disease, he has hyperdynamic heart function with normal filling pressures to even mildly low pressures. TRANSINT:[id number] Voice Confirmation ID: [id number] DOCUMENT ID: [id number] GENE VIDAL MD at 1404 CC: [id number] DICTATION DATE: 02/18/17 1015 MOTOR MAN: 02/18/17 1039 [facility] CLI 02/17/17 [place] [id number] [place] [address]
== END | disposition home or self-care (01) ==
LOC: D.ECHO 08:45
DX: I20.9 Angina pectoris, unspecified (principal); I25.10 Atherosclerotic heart disease of native coronary artery without angina pectoris; E78.5 Hyperlipidemia, unspecified; R06.00 Dyspnea, unspecified; R07.9 Chest pain, unspecified

== ENCOUNTER → 2017-06-15 19:35 | Outpatient (CLI) | payer OTHER ==
[2016-10-18 21:53] VITALS: BMI 32.1
[2017-06-15 20:59] LABS: ALT (SGPT) 35 U/L (10-68); CHOLESTEROL, TOTAL 185 mg/dL (0-200); CREATINE KINASE 68 UL (21-232); HDL CHOLESTEROL 31 mg/dL (32-96); TRIGLYCERIDE 439 mg/dL (30-200)
== END | disposition home or self-care (01) ==
LOC: D.LABREF 19:35
PROVIDERS: Internal Medicine Cardiovascular Disease
DX: E78.5 Hyperlipidemia, unspecified (principal)

== ENCOUNTER 2017-10-02 01:42 | Observation (INO) | payer OTHER ==
[~2017-10-02] VITALS: Ht 180.3 cm; Wt 100.0 kg
[2017-10-02] VITALS (8 sets, daily range): BP systolic 91–130; BP diastolic 58–68; Ht 180.3 cm; Wt 100.0 kg
--- NOTE | ~2017-10-02 | OP ---
PATIENT NAME: ALLAN SURESH MEDICAL RECORD: [id number] :64 LOCATION:D.M2 D.2133 ADMISSION DATE:10/02/17 SURGEON: PEDRO GUERRERO MD DATE OF OPERATION: 10/02/2017 PROCEDURE: Left heart catheterization, right radial artery approach. CATHETERS: Radial sheath, [place] catheter as well as a hockey stick guide. Procedure was well tolerated. The patient was returned to ts. Sheath was removed. TR band was placed. FINDINGS: Left ventriculography in 30-degree BERNABE view: Normal wall motion, normal systolic function. CORONARY ANATOMY: LEFT MAIN: Left main is free of disease. LAD: An area of previous stenting shows no evidence of significant restenosis. No progression of red devil disease. CIRCUMFLEX: Free of disease. RIGHT CORONARY ARTERY: Has a very discrete area of restenosis, 80% in its mid portion. Rest of the area is widely patent. IMPRESSION: Focal restenosis. PLAN: Intervention momentarily. DESCRIPTION OF PROCEDURE: Using the indwelling radial sheath, we placed the hockey-stick guide catheter, which provided good guide support. This was followed by a 300 cm [place] XT wire, which was placed across the tightly occluded right coronary down this vessel. Predeployment of balloon unit was a 3.5 x 15 mm [place]. This was taken up to 12 and 14 atmospheres with still significant residual. Therefore, placed a 3.5 x 15 mm Skip drug-eluting stent up to 14 atmospheres. Excellent resolution of 80% stenosis, no significant residual. NISHANT flow was 3 throughout the procedure. Heparin was used during the case. The patient was previously on Plavix. Sheath closed with a TR band. TRANSINT:[id number] Voice Confirmation ID: [id number] DOCUMENT ID: [id number] PEDRO GUERRERO MD at 1117 CC: [id number] DICTATION DATE: 10/02/17 1137 POCKET CLOSER: 10/02/17 1206 DIS IN 10/03/17 [place] [id number]
--- NOTE | ~2017-10-02 | HP ---
PATIENT: ALLAN SURESH MEDICAL RECORD: [id number] ACCOUNT: [id number] LOCATION:[address] : [birth year] ADMISSION DATE: 10/02/17 HISTORY AND PHYSICAL EXAMINATION HISTORY: A 57-year-old male presented to the Emergency Room with 8/10 substernal chest pain. History of multiple prior stents, followed by cardiology. PAST MEDICAL HISTORY: Also significant for diabetes. CURRENT MEDICATIONS: Plavix, Lipitor, lisinopril, amitriptyline 25 mg at bedtime, aspirin 81 mg daily, hydrocodone 10/325 p.r.n. pain, Lantus 14 units subcutaneously daily, sliding scale insulin, Farxiga 10 mg daily, Dexilant 60 mg daily. REVIEW OF SYSTEMS: CONSTITUTIONAL: Significant for the substernal chest pain beginning 2 hours prior to admission with known cardiovascular disease and prior stent placement. HEENT: Denies cephalgia, visual changes, tinnitus, epistaxis, or dysphagia. CARDIOVASCULAR: As above. GASTROINTESTINAL: Denies hematemesis, hematochezia, or melena. GENITOURINARY: Denies dysuria. MUSCULOSKELETAL: No acute changes. ENDOCRINE: Denies polyuria, polydipsia, polyphagia. He has history of insulin-dependent diabetes mellitus. MUSCULOSKELETAL: No acute changes. PHYSICAL EXAMINATION: VITAL SIGNS: Temperature 97.7, blood pressure 92/63, heart rate 68, respirations 18, O2 sat is 97%, blood pressure on admission 162/90. HEENT: Normocephalic and atraumatic. Eyes; pupils are equally round and reactive to light and accommodation. Extraocular muscles intact. Conjunctivae not injected. Ears; canals patent. TMs are intact. Nose; nares patent without drainage. Throat; no erythema and no exudates. NECK: Supple. No lymphadenopathy. No JVD. HEART: Regular rate and rhythm. No S3 or S4. No rub. LUNGS: Clear to auscultation bilaterally. Breathing is nonlabored. ABDOMEN: Soft and nontender. Bowel sounds positive. EXTREMITIES: Present times 4. No edema. NEUROLOGIC: No focal deficits. SKIN: Warm and dry. No rash. LABORATORY DATA: EKG on admission showed sinus rhythm, rate of 64; possible inferior infarct, age undetermined; abnormal EKG. CBC; white count 6.1, hemoglobin 14.3, hematocrit 41.4, platelets 170. Chemistry shows sodium of 142, potassium 3.9, chloride 106, bicarb 28.5, BUN 19, creatinine 1.0. CK 93, CK-MB 1.1. Troponin less than 0.017. ASSESSMENT AND PLAN: 1. Acute substernal chest pain, angina with known cardiovascular disease, abnormal EKG. Cardiology consulted. The patient was taken to the liaison inspection laboratory assistant and found to have right coronary artery restenosis of 80% in midportion. He underwent successful angioplasty and stent placement with Skip drug-eluting stent. The patient, post-cath and revascularization, doing well. Discharge HISTORY AND PHYSICAL [id number] ALLAN SURESH planning when cleared by cardiology. 2. Insulin-dependent diabetes mellitus. Placed on sliding scale. Intermediate resistance until discharge and then we will resume home meds. TRANSINT:[id number] Voice Confirmation ID: [id number] DOCUMENT ID: [id number] HIRAL RASHID DO at 1005 CC: [id number] DICTATION DATE: 10/02/17 1407 HORIZONTAL BORING MILL SET UP OPERATOR: 10/02/17 1514 DIS IN 10/03/17 [facility] [address] [place] [address]
--- NOTE | ~2017-10-02 | CN ---
PATIENT NAME:ALLAN SURESH MEDICAL RECORD: [id number] : 64 LOCATION:D. D.2133 ADMIT DATE: 10/02/17 ACCOUNT: [id number] CONSULTING PHYSICIAN: PEDRO GUERRERO MD REFERRING PHYSICIAN: HIRAL RASHID DO DATE OF CONSULTATION: 10/02/2017 HISTORY: A 57-year-old gentleman with known history of coronary disease, status post multiple interventions, most recently about a year ago with nonmedicated stent. He had been on a prolonged trip; however he felt up to snuff since yesterday, been taking his medications regularly. More malaised and fatigued. Occasional increased angina, on Ranexa for chronic angina. We were asked to see him concerning his cardiovascular status. PAST MEDICAL HISTORY: Includes; 1. Hypertension. 2. Hyperlipidemia. 3. Diabetes mellitus. 4. Degenerative arthritis of the spine. MEDICATIONS: Typically include Plavix 75 daily, atorvastatin 80 daily, lisinopril 10 daily, Ranexa 100 b.i.d., amitriptyline 25 at bedtime, aspirin 81 daily, Farxiga 5 daily, insulin per scale, Glucophage 1 gram b.i.d., Januvia 50 at bedtime. SOCIAL HISTORY: Nonsmoker and nondrinker. He is able to take care of ADLs. REVIEW OF SYSTEMS: The patient reports easy bruising but reports no swollen glands. The patient reports no fever, no night sweats, no significant weight gain, no significant weight loss. No significant exercise tolerance. The patient reports no dry eyes, no irritation, no vision change. Patient reports no difficulty hearing and no ear pain. Patient reports no frequent nose bleeds or nose and sinus problems. Patient reports on arm pain on exertion. No shortness of breath while lying down. No history of heart murmur. Patient reports no cough, no wheezing or coughing up blood. Patient reports no abdominal pain, no vomiting. Normal appetite. No diarrhea and not vomiting blood. No nausea and no constipation. Patient reports no incontinence. No difficulty urinating. No hematuria. No increased frequency. Patient reports no muscle aches. No weakness, no arthralgias, no back pain. No swelling of the extremities. Patient reports no abnormal mole, no jaundice, no rashes. Reports no loss of consciousness. No weakness and no numbness. No seizures, dizziness, or headaches. The patient reports no depression, no sleep disturbance, feeling safe in a relationship and no alcohol abuse. Patient reports on fatigue. Reports no runny nose or sinus pressure. No itching, no hives, and no frequent sneezing. PHYSICAL EXAMINATION: GENERAL: Pleasant gentleman, in no acute distress. VITAL SIGNS: Blood pressure 120/67. Pulse 68 and regular. HEENT: Normocephalic and atraumatic. NECK: No JVD. HEART: Regular. LUNGS: Good air excursion. ABDOMEN: Soft and nontender. Pulses 2+. EXTREMITIES: There is no edema. CONSULT REPORT [id number] ALLAN SURESH NEUROLOGIC: Grossly intact. ECG shows nonspecific ST-T changes, unchanged from previous. IMPRESSION: Accelerated angina. PLAN: Angiography and intervention based on above. TRANSINT:[id number] Voice Confirmation ID: [id number] DOCUMENT ID: [id number] PEDRO GUERRERO MD at 1117 CC: [id number] DICTATION DATE: 10/02/17 0853 FITTING ROOM ATTENDANT: 10/02/17 1243 DIS IN 10/03/17 [place] [id number] [place] [id number]
--- NOTE | ~2017-10-02 | HEMODYNAMI ---
PATIENT:ALLAN SURESH MEDICAL RECORD: [id number] : 64 LOCATION[id number] ADMISSION DATE: 10/02/17 Generatedon:10/02/201711:36 Patient name: ALLAN SURESH Patient #: [id number] SSN: : Date of study: 10/02/2017 Page: Of Hemodynamic Procedure Report Patient Data Patient Demographics Procedure consent was obtained First Name: ALLAN Gender: Male Last Name: KERWIN : 1960 [facility] Initial: DANYA Age: 57 year(s) Patient #: [id number] Race: Additional ID: [id number] Contact details Address: [address] [place] [address] State: [place] City: [place] Zip code: [address] Past Medical History History of disease Date Diagnosis Comments CAD Allergies Allergen Reaction Date Comments Reported Penicillins 05/06/2014 Other allergy 10/02/2017 N Admission Admission Data Admission Date: 10/02/2017 Admission Time: 4:07 Room #: D.2133 Lab Results Lab Result Date: 10/02/2017 Lab Result Time: 2:00 Biochemistry Name Units Result Min Max BUN mg/dl 18 --(---*)-- 7 18 Creatinine mg/dl 1.1 --(--*-)-- 0.6 1.3 CBC Name Units Result Min Max Hematocrit % 45.4 --(-*--)-- 42 54 Hemoglobin g/dl 15.8 --(--*-)-- 13.5 17.5 Procedure Procedure Types Cath Procedure Diagnostic Procedure LHC LHC w/Coronaries Sedation Charges Moderate Sedation up to 15 minutes PCI Procedure Coronary Stent Coronary Stent Initial Procedure Description Procedure Date Procedure Date: 10/02/2017 Procedure Start Time: 11:15 Procedure End Time: 11:34 Procedure Staff Name Function Shailesh Carbone MD Performing Physician David Dent RT Monitor Genaro Joe RN Nurse Jarred Lopez RT Scrub Procedure Data Cath Procedure Fluoroscopy Diagnostic fluoroscopy Total fluoroscopy Time: 3.8 time: 3.8 min min Diagnostic fluoroscopy Total fluoroscopy dose: 941 dose: 941 mGy mGy Contrast Material Contrast Material Type Amount (ml) Isovue 300 84 Entry Location Entry Primary Successful Side Size Upsize Upsize Entry Closure Driver ccessful Closure Location (Fr) 1 (Fr) 2 (Fr) Remarks Device Remarks Radial Right 6 Fr Mechanical artery Short Compression Estimated blood loss: 10 ml Diagnostic catheters Device Type Used For End Catheter Placement DIAGNOSTIC [place] 110cm 5 Procedure Fr catheter ([id number]) Procedure Complications No complications Procedure Medications Medication Administration Route Dosage 0.9% NaCl I.V. 100 ml/hr Oxygen etCO2 Nasal cannula 2 l/min Heparin Flush Bag added to field 2 bags (1000units/500ml NS) Lidocaine 2% added to field 20 Radial Cocktail added to field 1 syringe (Verapomil 2mg/Nitro 400mcg/Heparin 1500units) Versed I.V. 2 mg Fentanyl I.V. 100 mcg Radial Cocktail I.A. 1 syringe (Verapomil 2mg/Nitro 400mcg/Heparin 1500units) Heparin Bolus I.V. 5000 units Versed I.V. 2 mg Hemodynamics Rest HGB: 15.8 (g/dl) Heart Rate: 64 (bpm) Pressure Samples Time Site Value (mmHg) Purpose Heart Use Rate(bpm) 11:18 LV 112/11,12 Snapshot 80 11:19 AO 101/70(85) Pullback 80 11:19 LV 103/10,12 Pullback 80 Gradients Valve Time Site 1 Site 2 Mean SEP/DFP Peak To Heart Use (mmHg) (sec/min) Peak Rate (mmHg) (bpm) Aortic 11:19 LV AO 2 12 2 80 103/10,12 101/70(85) Calculations Valve P-P Mean Valve Index Valve Source Name Gradient Area Flow (cm2) Aortic 2 2 2 2 Snapshots Pre Cath Intra NCS Post Cath Vital Signs Time Heart Resp SPO2 etCO2 NIBP (mmHg) Rhythm Pain Sedation Rate (ipm) (%) (mmHg) Status Level (bpm) 11:03:10 63 20 98 33.2 136/79(121) NSR 0 (11) 10(A) , No pain 11:07:48 68 12 97 40.7 121/73(102) NSR 0 (11) 10(A) , No pain 11:12:29 65 17 99 8.3 116/66(97) NSR 0 (11) 10(A) , No pain 11:17:09 66 14 95 9.8 123/75(99) NSR 0 (11) 9(A) , No pain 11:21:46 85 12 100 35.4 111/74(96) NSR 0 (11) 9(A) , No pain 11:26:27 83 14 93 34.6 108/60(102) NSR 0 (11) 10(A) , No pain 11:31:05 85 14 97 39.9 103/68(90) NSR 0 (11) 10(A) , No pain Medications Time Medication Route Dose Verified Delivered Reason Not es Effectiveness by by 11:03:43 0.9% NaCl I.V. 100 Genaro Genaro Per physician ml/hr Tatyana Joe RN RN 11:03:51 Oxygen etCO2 2 l/min Genaro Genaro Per physician Nasal Tatyana Joe cannula RN RN 11:04:03 Heparin Flush added 2 bags Genaro Genaro used for Bag to Lorigan Tatyana procedure (1000units/500ml field RN RN NS) 11:04:11 Lidocaine 2% added 20ml Genaro Genaro for local to vial Lorigan Lorigan anesthetic field RN RN 11:04:23 Radial Cocktail added 1 Genaro Genaro used for (Verapomil to syringe Lorigan Lorigan procedure 2mg/Nitro field RN RN 400mcg/Heparin 1500units) 11:16:43 Versed I.V. 2 mg Genaro Genaro for sedation Tatyana Joe RN RN 11:16:51 Fentanyl I.V. 100 mcg Genaro Genaro for sedation Tatyana Joe RN RN 11:17:05 Radial Cocktail I.A. 1 Genaro Genaro for (Verapomil syringe Lorigan Lorigan vasodilation 2mg/Nitro RN RN 400mcg/Heparin 1500units) 11:24:01 Heparin Bolus I.V. 5000 Genaro Genaro for units Lorigan Lorervin anticoagulation RN RN 11:30:19 Versed I.V. 2 mg Genaro Genaro for sedation Tatyana Joe RN executive account manager Log Time Note 10:29:27 Time tracking: Regular hours (M-F 7:00 - 5:00) 10:29:31 Plan of Care:Hemodynamics will remain stable., Cardiac rhythm will remain stable., Comfort level will be maintained., Respiratory function will remain adequate., Patient/ family verbilizes understanding of procedure., Procedure tolerated without complication., Recovers from procedure without complications.. 10:41:50 Jarred Lopez RT(R) sent for patient. Start room use. 10:54:45 Patient received from Med II to CCL 1 Alert and oriented. Tansferred to table in Supine position. 10:54:46 Warm blankets applied, and ivon hugger turned on for patient comfort. 10:54:46 Correct patient and procedure confirmed by team. 10:54:47 Signed procedure consent form obtained from patient. 10:54:48 Pre-procedure instructions explained to patient. 10:54:48 Pre-op teaching completed and patient verbalized understanding. 10:54:50 Family in patients room. 11:02:19 ECG and BP/O2 sat monitors applied to patient. 11:02:19 Vital chart was started 11:03:43 0.9% NaCl 100 ml/hr I.V. was administered by Genaro Joe RN; Per physician; 11:03:51 Oxygen 2 l/min etCO2 Nasal cannula was administered by Genaro Joe RN; Per physician; 11:04:03 Heparin Flush Bag (1000units/500ml NS) 2 bags added to field was administered by Genaro oJe RN; used for procedure; 11:04:11 Lidocaine 2% 20ml vial added to field was administered by Genaro Joe RN; for local anesthetic; 11:04:23 Radial Cocktail (Verapomil 2mg/Nitro 400mcg/Heparin 1500units) 1 syringe added to field was administered by Genaro Joe RN; used for procedure; 11:08:07 Baseline sample Acquired. 11:08:09 Rhythm: sinus rhythm 11:08:23 H&P Date Dictated: 10/02/2017 Within 30 days and on chart.. 11:08:25 Patient NPO since Midnight. 11:08:33 Patient allergic to Other allergyPCN 11:08:35 Is the patient allergic to Iodine/contrast media? No. 11:08:36 Is patient on blood thinner?Yes 11:08:39 ACC The patient was administered the following blood thiners within the last 24 hours: ACCPlavix 11:08:40 Patient diabetic? Yes. 11:08:41 If diabetic: On Metformin? Yes 11:08:43 If on Metformin: Last Dose? 10/01/2017 11:08:46 Previous problem with sedation/anesthesia? No ? 11:08:47 Snore? Yes 11:08:48 Sleep apnea? No 11:08:48 Deviated septum? No 11:08:50 Opens mouth fully? Yes 11:08:50 Sticks out tongue? Yes 11:08:52 Airway obstruction? No ? 11:08:54 Dentures? No ? 11:08:56 Modified Corky's test Ulnar < 7 seconds 11:08:58 Patient pain scale 0/10 ?. 11:09:19 IV patent on arrival in left hand with 0.9% NaCl at [facility]. 11:09:46 Lab Result : Creatinine 1.1 mg/dl 11:09:46 Lab Result : BUN 18 mg/dl 11:09:46 Lab Result : Hemoglobin 15.8 g/dl 11:09:46 Lab Result : Hematocrit 45.4 % 11:09:50 Lab results completed and on chart. 11:09:52 Right Radial & Right Groin area was prepped with chlora-prep and draped in sterile fashion 11:09:53 Alarms reviewed by R. N. 11:09:53 Sharps counted by scrub and verified by R.N. 11:09:56 Use device set Radial Dx or PCI 11:09:57 ACIST Syringe (59065) opened to sterile field. 11:09:57 Medline Cath Pack ([id number]) opened to sterile field. 11:09:58 Bag Decanter () opened to sterile field. 11:09:58 ACIST Hand Control (69010) opened to sterile field. 11:09:59 ACIST Manifold (00917) opened to sterile field. 11:09:59 Tegaderm 4 x 4 (1626W) opened to sterile field. 11:10:00 MBrace Wrist Support ([id number]) opened to sterile field. 11:10:01 DIAGNOSTIC WIRE .035 260cm J wire (505712) opened to sterile field. 11:10:02 SHEATH 6Fr Prelude Radial ([id number]) opened to sterile field. 11:10:10 Physician arrived 11:10:11 --------ALL STOP TIME OUT------ 11:10:11 Final Timeout: patient, procedure, and site verified with staff and physician. All members of the team are in agreement. 11:10:13 Right Radial & Right Groin site verified by team. 11:10:15 Physical assessment completed. ASA score P 2 - A patient with mild systemic disease as per Shailesh Carbone MD. 11:10:17 Sedation plan: IV Moderate Sedation Medication:Versed, Fentanyl 11:15:52 Procedure started. 11:15:52 Full Disclosure recording started 11:15:56 Local anesthetic to right radial artery with Lidocaine 2% by Shailesh Carbone MD.INITIAL ACCESS ONLY 11:16:18 A 6 Fr Short sheath was inserted into the Right Radial artery 11:16:43 Versed 2 mg I.V. was administered by Genaro Joe RN; for sedation; 11:16:47 Zero performed for pressure channel P1 11:16:51 Fentanyl 100 mcg I.V. was administered by Genaro Joe RN; for sedation; 11:16:56 A DIAGNOSTIC [place] 110cm 5 Fr catheter (687928) was advanced over the wire and used for Procedure. 11:17:05 Radial Cocktail (Verapomil 2mg/Nitro 400mcg/Heparin 1500units) 1 syringe I.A. was administered by Genaro Joe RN; for vasodilation; 11:18:53 LV gram done using BERNABE 11:18:56 Injector settings: Ml/sec: 10, Volume: 20, 11:18:58 LV hemodynamics recorded. 11:19:02 EF : 55 % 11:19:31 LCA angiography performed. 11:21:48 INFLATOR Merit BasixCompak (WL2508) opened to sterile field. 11:23:11 COUGAR 300cm guide wire ([id number]) opened to sterile field. 11:23:20 GUIDE 6FR HS I catheter (LA6HSI) opened to sterile field. 11:23:34 Catheter removed. 11:23:39 6 Fr HS1 guide catheter was inserted over the wire 11:24:01 Heparin Bolus 5000 units I.V. was administered by Genaro Joe RN; for anticoagulation; 11:26:13 COUGAR wire advanced. 11:26:15 Wire advanced across lesion. 11:27:06 Inflate balloon Inflation number: 1 A EMERGE OTW 3.5 x 20 balloon ([id number]) was prepped and advanced across the Prox RCA, then inflated to 12 LOYD for 0:30 (min:sec). 11:28:19 Balloon removed over the wire. 11:29:55 Place stent Inflation Number: 1 A MICHAEL OTW 3.5 x 15 stent ([id number]) was prepped and advanced across the Mid RCA. The stent was deployed at 14 LOYD for 0:45 (min:sec). 11:30:19 Versed 2 mg I.V. was administered by Genaro Joe RN; for sedation; 11:30:53 Stent catheter was removed intact over wire. 11:30:54 Wire removed. 11:30:54 Guide catheter removed. 11:31:00 TR BAND Standard ([id number]) opened to sterile field. 11:31:10 Sheath removed intact; hemostasis achieved with Mechanical Compression to the Right Radial artery. 11:31:11 Procedure ended.(Physican Out) 11:32:54 Fluoroscopy time 03.80 minutes. 11:33:04 Fluoroscopy dose: 941 mGy 11:33:04 Flurop Dose total: 941 11:33:19 Contrast amount:Isovue 300 84ml. 11:33:20 Sharps counted by scrub and verified by R.N. 11:33:22 TR band inflated with 10cc of air. 11:33:24 Insertion/operative site no bleeding no hematoma. 11:33:29 Post right radial artery:stable, soft, clean and dry 11:33:30 Post Procedure Pulses reassessed and unchanged 11:33:32 Post-procedure physical assessment completed. ASA score P 2 - A patient with mild systemic disease as per Shailesh Carbone MD. 11:33:34 Post procedure rhythm: unchanged. 11:33:36 Estimated blood loss: 10 ml 11:33:38 Post procedure instruction explained to patient.Patient verbalizes understanding. 11:33:38 Patient needs reinforcement of post procedure teaching. 11:33:46 Procedure type changed to Cath procedure, Diagnostic procedure, LHC, LHC w/Coronaries, Sedation Charges, Moderate Sedation up to 15 minutes, PCI procedure, Coronary Stent, Coronary Stent Initial 11:34:19 Procedure and supply charges have been captured, reviewed, submitted and are correct. 11:34:21 Procedure Complication : No complications 11:34:23 Vital chart was stopped 11:34:23 See physician's report for complete and final results. 11:34:25 Report given to PCU. 11:34:28 Patient transfered to PCU with Stretcher. 11:34:36 Procedure ended. 11:34:36 Full Disclosure recording stopped 11:34:41 End room use (Document Last) Intervention Summary Intervention Notes Time ActionType Lesion and Equipment Action# Pressure Duration Attributes Used 11:27:06 Inflate Prox RCA EMERGE OTW 1 12 00:30 balloon 3.5 x 20 balloon ([id number]) 11:29:55 Place stent Mid RCA MICHAEL OTW 3.5 1 14 00:45 x 15 stent ([id number]) Device Usage Item Name Manufacture Quantity Catalog Number Hospital Part Current Minimal Lot# / Charge Number Stock Stock Serial# Code ACIST Syringe Acist 1 99703 646934 700081 408591 20 (22476) Medical Systems Inc Medline Cath Cardinal 1 [id number] 968031 32870 848114 5 [employer] ([id number]) Bag Decanter Microtek 1 2001S 897916 27785 426367 5 (2002S) Medical Inc. ACIST Hand Acist 1 38648 387311 744033 512689 5 Control (36164) [employer] Inc ACIST Manifold Acist 1 93684 150596 411312 140572 5 (67884) [employer] Systems Inc Tegaderm 4 x 4 3M 1 1626W 098792 402785 412655 5 (1626W) MBrace Wrist Advanced 1 140-0250-00 188969 05216 119347 5 Support Vascular ([id number]) Dynamics DIAGNOSTIC WIRE St Shabbir 1 163780 161101 667448 709616 30 .035 260cm J wire (112194) SHEATH 6Fr Merit 1 [id number] 935194 510080 417787 5 Prelude Radial Medical ([id number]) DIAGNOSTIC Terumo 1 40-6102 751197 521045 393493 5 [place] 110cm 5 Fr catheter (896506) INFLATOR Merit Merit 1 KU4242 325684 011054 882410 15 FounderSynccaTaktio (EW8930) COUGAR 300cm Em 1 [id number] 780256 419494 781832 1 guide wire Vascular ([id number]) GUIDE 6FR HS I Medtronic 1 LA6HSI 486794 13096 246750 1 catheter (LA6HSI) EMERGE OTW 3.5 [place] 1 [id number] 051088 337319 450474 5 [id number] x 20 balloon Scientific ([id number]) MICHAEL OTW 3.5 x Medtronic 1 [id number] 859007 5286109 421032 5 [id number] 15 stent ([id number]) TR BAND Terumo 1 [id number] 779254 833034 412189 40 Standard ([id number]) Signature Audit [place] Stage Time Signature Unsigned Intra-Procedure 10/02/2017 David Dent 11:36:40 AM RT(R) Signatures Monitor : David Dent RT Signature : Date : Time : [place] [id number] [place] [address]
[2017-10-02 02:06] LABS: BASOPHILS 0.3 % (0-2); EOSINOPHILS 2.9 % (0-7); HEMATOCRIT 45.4 % (42.0-54.0); HEMOGLOBIN 15.8 g/dL (13.5-17.5); IMMATURE GRANULOCYTES 0.9 % (0-5); LYMPHOCYTES 37.4 % (15-50); MCH 30.9 pg (26.0-34.0); MCHC 34.8 g/dL (31.0-37.0); MCV 88.8 fL (80.0-100.0); MEAN PLATELET VOLUME 9.7 fL (7.4-10.4); MONOCYTES 9.3 % (2-11); NEUTROPHILS 49.2 % (40-80); PLATELET COUNT 204 10x3/uL (130-400); RBC 5.11 10x6/uL (4.20-6.10); WBC 6.6 10x3/uL (4.8-10.8)
[2017-10-02 02:17] LABS: APTT 25.7 SECONDS (22.8-39.4); INR 0.91 (0.85-1.17); PROTIME 11.9 SECONDS (11.6-15.0)
[2017-10-02 02:25] LABS: ALBUMIN 3.7 g/dL (3.4-5.0); ALKALINE PHOSPHATASE 61 U/L (46-116); ALT (SGPT) 49 U/L (10-68); BILIRUBIN - TOTAL 0.78 mg/dL (0.2-1.3); CALC OSMOLALITY 285 mosm/kg (275-300); CALCIUM 8.4 mg/dL (8.5-10.1); CARBON DIOXIDE 25.3 mmol/L (21.0-32.0); CHLORIDE - SERUM 104 mmol/L (98-107); CREATININE - SERUM 1.1 mg/dL (0.6-1.3); GLUCOSE 180 mg/dL (74-106); POTASSIUM - SERUM 3.8 mmol/L (3.5-5.1); PROTEIN - SERUM 7.3 g/dL (6.4-8.2); SODIUM 140 mmol/L (136-145); UREA NITROGEN 18 mg/dL (7-18); eGFR NON AFRICAN AMERICAN 74 mL/min (90-120)
[2017-10-02 02:37] LABS: CKMB 1.1 U/L (0.0-3.6); CREATINE KINASE 93 UL (21-232); PRO BNP 59 pg/mL (0-125); TROPONIN-I < 0.017 ng/mL (0.000-0.060)
[2017-10-02 09:18] LABS: BASOPHILS 0.2 % (0-2); EOSINOPHILS 2.9 % (0-7); HEMATOCRIT 41.4 % (42.0-54.0); HEMOGLOBIN 14.3 g/dL (13.5-17.5); IMMATURE GRANULOCYTES 0.8 % (0-5); LYMPHOCYTES 37.3 % (15-50); MCHC 34.5 g/dL (31.0-37.0); MCV 89.6 fL (80.0-100.0); MEAN PLATELET VOLUME 9.8 fL (7.4-10.4); MONOCYTES 8.1 % (2-11); NEUTROPHILS 50.7 % (40-80); PLATELET COUNT 170 10x3/uL (130-400); RBC 4.62 10x6/uL (4.20-6.10); RDW 13.2 % (11.5-14.5); WBC 6.1 10x3/uL (4.8-10.8)
[2017-10-02 09:28] LABS: CALC OSMOLALITY 287 mosm/kg (275-300); CALCIUM 7.9 mg/dL (8.5-10.1); CARBON DIOXIDE 28.5 mmol/L (21.0-32.0); CHLORIDE - SERUM 106 mmol/L (98-107); GLUCOSE 151 mg/dL (74-106); POTASSIUM - SERUM 3.9 mmol/L (3.5-5.1); SODIUM 142 mmol/L (136-145); UREA NITROGEN 19 mg/dL (7-18); eGFR NON AFRICAN AMERICAN 82 mL/min (90-120)
[2017-10-03 02:13] VITALS: BP 115/68
[2017-10-03 05:26] VITALS: BP 119/63
[2017-10-03 05:37] LABS: BASOPHILS 0.1 % (0-2); EOSINOPHILS 2.6 % (0-7); HEMATOCRIT 42.5 % (42.0-54.0); HEMOGLOBIN 14.6 g/dL (13.5-17.5); IMMATURE GRANULOCYTES 0.6 % (0-5); LYMPHOCYTES 29.7 % (15-50); MCH 30.7 pg (26.0-34.0); MCHC 34.4 g/dL (31.0-37.0); MCV 89.5 fL (80.0-100.0); MEAN PLATELET VOLUME 9.7 fL (7.4-10.4); MONOCYTES 6.1 % (2-11); NEUTROPHILS 60.9 % (40-80); PLATELET COUNT 179 10x3/uL (130-400); RBC 4.75 10x6/uL (4.20-6.10); RDW 13.1 % (11.5-14.5); WBC 6.9 10x3/uL (4.8-10.8)
[2017-10-03 05:51] LABS: CALC OSMOLALITY 280 mosm/kg (275-300); CALCIUM 7.9 mg/dL (8.5-10.1); CARBON DIOXIDE 27.7 mmol/L (21.0-32.0); CHLORIDE - SERUM 105 mmol/L (98-107); CREATININE - SERUM 0.9 mg/dL (0.6-1.3); GLUCOSE 112 mg/dL (74-106); POTASSIUM - SERUM 3.8 mmol/L (3.5-5.1); SODIUM 140 mmol/L (136-145); UREA NITROGEN 16 mg/dL (7-18); eGFR NON AFRICAN AMERICAN > 90 mL/min (90-120)
[2017-10-03 10:10] VITALS: BP 115/68
== END 2017-10-03 10:17 | disposition home or self-care (01) ==
LOC: D.ER 01:42 → D.M2 04:07 → OBSVTIME 04:07 → D.M2 10-03 10:17
PROVIDERS: Emergency Medicine; Family Medicine; Internal Medicine Interventional Cardiology
DX: I25.110 Atherosclerotic heart disease of native coronary artery with unstable angina pectoris (principal); Z95.5 Presence of coronary angioplasty implant and graft; E11.9 Type 2 diabetes mellitus without complications; I10 Essential (primary) hypertension; E78.5 Hyperlipidemia, unspecified; T82.855A Stenosis of coronary artery stent, initial encounter; Y83.8 Other surgical procedures as the cause of abnormal reaction of the patient, or of later complication, without mention of misadventure at the time of the procedure

== ENCOUNTER 2017-10-08 17:52 | Emergency (ER) | payer OTHER ==
[~2017-10-08] VITALS: Ht 180.3 cm; Wt 101.4 kg
[2017-10-08 18:01] VITALS: Ht 180.3 cm; Wt 101.4 kg
[2017-10-08 18:26] LABS: BASOPHILS 0.1 % (0-2); HEMATOCRIT 47.2 % (42.0-54.0); HEMOGLOBIN 17.2 g/dL (13.5-17.5); IMMATURE GRANULOCYTES 0.7 % (0-5); LYMPHOCYTES 26.3 % (15-50); MCH 31.3 pg (26.0-34.0); MCHC 36.4 g/dL (31.0-37.0); MCV 85.8 fL (80.0-100.0); MEAN PLATELET VOLUME 9.9 fL (7.4-10.4); MONOCYTES 8.6 % (2-11); NEUTROPHILS 62.3 % (40-80); PLATELET COUNT 211 10x3/uL (130-400); WBC 7.4 10x3/uL (4.8-10.8)
[2017-10-08 18:33] LABS: PROTIME 12.8 SECONDS (11.6-15.0)
[2017-10-08 18:45] LABS: ALKALINE PHOSPHATASE 67 U/L (46-116); ALT (SGPT) 56 U/L (10-68); BILIRUBIN - TOTAL 1.47 mg/dL (0.2-1.3); CALC OSMOLALITY 277 mosm/kg (275-300); CALCIUM 8.9 mg/dL (8.5-10.1); CARBON DIOXIDE 22.3 mmol/L (21.0-32.0); CHLORIDE - SERUM 100 mmol/L (98-107); CREATININE - SERUM 1.1 mg/dL (0.6-1.3); POTASSIUM - SERUM 3.9 mmol/L (3.5-5.1); SODIUM 134 mmol/L (136-145); UREA NITROGEN 21 mg/dL (7-18); eGFR NON AFRICAN AMERICAN 74 mL/min (90-120)
[2017-10-08 18:50] LABS: GLUCOSE 224 mg/dL (74-106)
[2017-10-08 18:58] LABS: CKMB 0.9 U/L (0.0-3.6); MAGNESIUM - SERUM 1.9 mg/dL (1.8-2.4)
[2017-10-08 18:59] LABS: TROPONIN-I < 0.017 ng/mL (0.000-0.060)
== END 2017-10-08 21:00 ==
LOC: D.ER 17:52
PROVIDERS: Family Medicine
DX: I21.9 Acute myocardial infarction, unspecified (principal); I46.9 Cardiac arrest, cause unspecified; E11.9 Type 2 diabetes mellitus without complications; I10 Essential (primary) hypertension